=== PATIENT | male | born 1960 | race Caucasian/White ===

== ENCOUNTER → 2024-01-08 12:40 | Outpatient (REF) | payer BC, SELFPAY | LOC: RAD 12:40 | PROVIDERS: ATTENDING PHYSICIAN Family Medicine | DX: I77.811 Abdominal aortic ectasia (principal) | CPT/HCPCS: 76770 ==

== ENCOUNTER → 2024-06-03 08:32 | Outpatient (REF) | payer BC, SELFPAY ==
[2024-06-03 09:26] LABS: % Basophils 0.6 % (0-2); % Eosinophils 4.1 % (0-6); % Immature Granulocytes 0.3 % (0-0.5); % Lymphocytes 21.3 % (20.5-51.1); % Monocytes 9.8 % (1.7-9.3); % Neutrophils 63.9 % (42.2-75.2); Absolute Eosinophils 0.3 10^3/uL (0-0.7); Absolute Lymphocytes 1.4 10^3/uL (1.2-3.4); Absolute Monocytes 0.6 10^3/uL (0.1-0.6); Absolute Neutrophils 4.2 10^3/uL (1.4-6.5); Hematocrit 38.5 % (39.0-52.0); Hemoglobin 13.4 g/dL (13.0-18.0); Mean Corp Hgb Conc. 34.8 g/dL (33.0-37.0); Mean Corpuscular Hgb 33.7 pg (27.0-31.0); Mean Corpuscular Volume 96.7 fL (80.0-94.0); Mean Platelet Volume 9.6 fL (7.4-10.4); Nucleated Red Blood Cells % 0 % (-); Platelet Count 220 10^3/uL (130-400); Red Blood Cell Count 3.98 10^6/uL (4.70-6.10); Red Cell Dist. Width 12.4 % (11.5-14.5); White Blood Cell Count 6.5 10^3/uL (4.8-10.8)
[2024-06-03 10:19] LABS: Glycohemoglobin (HgbA1c) 5.2 % (4.0-5.6)
[2024-06-03 10:59] LABS: Microalbumin, Random Urine 1.3 mg/dl (0.6-1.7)
[2024-06-03 11:05] LABS: Microalbumin/creatinine Ratio 14.4 mg/g
[2024-06-03 11:14] LABS: ALT (SGPT) 22 U/L (0-50); AST (SGOT) 33 U/L (17-59); Albumin 4.3 g/dl (3.5-5.0); Alkaline Phosphatase 84 U/L (38-126); Blood Urea Nitrogen 18 mg/dl (9-20); Carbon Dioxide 33 mmol/L (22-30); Chloride 100 mmol/L (98-107); Glucose 87 mg/dl (70-99); HDL Cholesterol 45 mg/dl; LDL Cholesterol, Calculated 130 mg/dl; Potassium 4.3 mmol/L (3.5-5.1); Sodium 138 mmol/L (135-145); Total Bilirubin 0.9 mg/dl (0.2-1.3); Total Cholesterol 228 mg/dl (50-199); Total Protein 6.8 g/dl (6.3-8.2); Triglyceride 266 mg/dl (10-149); Uric Acid 6.1 mg/dl (3.5-8.5); Very Low Density Lipoprotein 53 mg/dl (0-30); eGFR > 60.00
[2024-06-03 11:38] LABS: PSA, Total - Screen 1.56 ng/ml (0.0-4.0)
== END ==
LOC: HWLAB 08:32
PROVIDERS: ATTENDING PHYSICIAN Family Medicine
DX: Z12.5 Encounter for screening for malignant neoplasm of prostate (principal); M10.9 Gout, unspecified; E11.9 Type 2 diabetes mellitus without complications; E78.5 Hyperlipidemia, unspecified; I10 Essential (primary) hypertension; E66.01 Morbid (severe) obesity due to excess calories; Z00.00 Encounter for general adult medical examination without abnormal findings
CPT/HCPCS: 36415; 80053; 80061; 82043; 82570; 83036; 84550; 85025; G0103

== ENCOUNTER 2025-03-24 05:39 | Emergency (ER) | payer BC, SELFPAY ==
[2025-03-24 05:44] VITALS: BP 143/82
[2025-03-24 06:08] VITALS: BMI 38.6
--- NOTE | 2025-03-24 06:15 | ED.GENMED ---
History of Present Illness
General
Chief Complaint: Flank Pain
Source: patient
Exam Limitations: none
Time Seen by Provider: 03/24/25 05:59
History of Present Illness
History of Present Illness:
64yoM with a history of atrial fibrillation no longer on anticoagulation, Parkinson's disease, hypertension, and CATRACHITO presenting for evaluation of left flank pain. Patient started to experience mild pain in his L flank yesterday evening before he
went to bed. He woke up around 3:30 AM this morning with worsening pain. Pain is localized to left flank and is nonradiating. He has a remote history of a kidney stone about 10 years ago and this feels similar. He was started on amantadine about
2 months ago and was increasing his dose up until 3 weeks ago. About 3 weeks ago, he had an episode of dysuria. He states his urine stream has not been the same since starting this medication. He is experiencing nocturia as well as urinary
urgency. He denies any fevers, chills, nausea, vomiting, abdominal pain, testicular pain.
Past History
Past History
ED Past Medical History: Arrthythmia (Atrial fibrillation), Asthma, HTN, Other (Gout) and Other (Kidney stone)
ED Past Surgical History: Appendectomy and Orthopedic (Cervical spinal fusion, right ankle fracture repair)
Social History
Tobacco: Former smoker
Alcohol: Occasional
Drug: None
Personal:
Living: with family
Employment: Employed (Teacher)
Family History
Family History: Hypertension; Negative Early CAD
Phy Exam
General Physical Exam
General Presentation: well appearing and no apparent distress
General Skin: warm and dry
General Habitus: normal
General Mental: alert
ENT Exam
ENT Exam: normocephalic
Pulmonary Exam
Pulmonary Exam: no respiratory distress
Gastrointestinal Exam
Gastrointestinal Exam: non tender, soft, non distended and no cva tenderness
Neurological Exam
Neurological Exam: alert
[place] Coma Scale
Eye Opening: Spontaneous
Verbal Response: Oriented
Motor Response: Obeys Commands
GCS Total Score: 15
Skin Exam
Skin Exam: normal color and warm/dry
Psychiatric Exam
Psychiatric Exam: normal mood/affect
Course
Orders/Labs/Results
Orders:
Orders
03/24/25 06:15
CT Abd/pel Without Iv Or Oral Urgent
Comment:
Reason For Exam: L flank pain
0.9% Sodium Chloride 1000 ml [Nss] 1,000 ml IV BOLUS
03/24/25 06:22
Complete Blood Count/With Diff Urgent
Urinalysis Reflex To Culture Urgent
Date Specimen was Collected: 03/24/25
Time Specimen was Collected: 06:19
03/24/25 06:35
Ketorolac [Toradol] 15 mg IV NOW STA
03/24/25 07:05
Comprehensive Metabolic Panel Urgent
Comment: REDRAW
Abnormal Lab Results
03/24/25 03/24/25
06:22 07:05
RBC 4.13 L 10^6/uL
(4.70-6.10)
MCV 97.6 H fL
(80.0-94.0)
MCH 33.2 H pg
(27.0-31.0)
Abs Immat Gran (auto) 0.1 H 10^3/uL
(0-0.05)
Absolute Monos (auto) 1.0 H 10^3/uL
(0.1-0.6)
Immature Gran % 1.2 H %
(0-0.5)
Lymphocytes % 19.6 L %
(20.5-51.1)
Monocytes % 11.3 H %
(1.7-9.3)
BUN 28 H mg/dl
(9-20)
03/24/25 06:22
03/24/25 07:05
Vital Signs
Initial and Last Documented VS:
Initial Vital Signs
Temp Pulse Resp BP Pulse Ox
98.2 F 77 20 143/82 96
03/24/25 05:44 03/24/25 05:44 03/24/25 05:44 03/24/25 05:44 03/24/25 05:44
Last Documented Vital Signs
Temp Pulse Resp BP Pulse Ox
98.2 F 77 20 143/82 96
03/24/25 05:44 03/24/25 05:44 03/24/25 06:43 03/24/25 05:44 03/24/25 05:44
MDM/Problems Addressed
Differential Diagnosis Includes:
64yoM here with L flank pain. Started last night and woke up him from sleep at 0330. Hx of kidney stones and this feels the same. Also c/o urinary urgency/nocturia for several weeks since starting a new medication. VSS. He is well-appearing in no
distress. No abdominal or CVA tenderness on exam. Differential diagnosis includes but is not limited to: Kidney stone, UTI, pyelonephritis, musculoskeletal, doubt but consider AAA
Initial ED plan: Check CBC, CMP, UA, and CT abdomen without contrast. IV fluid bolus. He declines analgesics.
*Critical Care Note
Total Time (30-74mins, 75-104mins- exclusive of procedures): Not Applicable
Update Note
Update Note:
Labs overall unremarkable including normal white count and creatinine. UA bland without signs of infection or microscopic hematuria. CT is negative for acute findings. Specifically, there is no hydronephrosis or evidence of ureterolithiasis.
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 Patient notified of this and was provided with a copy of his CT scan report. Patient does report a known history of an aneurysm and follows with vascular surgery for serial
ultrasounds. Pain has resolved on reassessment after receiving Toradol. He admits that pain is not as severe as his prior kidney stone but he wanted to 'get on top of it.' No indication for hospitalization. Unclear etiology of pain, possibly
musculoskeletal. Advised close follow-up with PCP and ED return precautions reviewed. Patient in agreement with plan and was discharged in stable condition.
ED Attending Note
-
Portions of this chart may have been created with voice recognition software.� Occasional wrong word or��sound alike� substitutions may have occurred due to the inherent limitations of voice recognition software.
Discharge Plan
Departure
Patient Disposition: Home (Routine Discharge)
Date of Disposition: 03/24/25
Time of Disposition: 07:57
Patient with high blood pressure during this ER visit?: Yes
Discharge Problem:
Left flank pain
Instructions: Flank Pain (DC)
Prescriptions:
No Action
omeprazole 40 MG capsule,delayed release(DR/EC)
40 mg PO
Indocin:
PO BID
Patient Comments:
pt unsure of indocin dose.
amiodarone [Pacerone] 200 MG tablet
200 mg PO BID Qty: 60 0RF
Rx Instructions:
Amiodarone 200 mg twice daily for 1 month then reduce to 200 mg once daily thereafter
amiodarone [Pacerone] 200 MG tablet
200 mg PO DAILY Qty: 30 11RF
Rx Instructions:
Amiodarone 200 mg twice daily for 1 month then reduce to 200 mg once daily thereafter
metoprolol succinate 100 MG tablet extended release 24 hr
100 mg PO DAILY Qty: 30 11RF
Rx Instructions:
You can take 2 tablets of Toprol XL 50 mg to equal the new dose of 100 mg daily
warfarin [Coumadin] 5 MG tablet
5 mg PO DAILY Qty: 45 0RF
Rx Instructions:
Take coumadin 5 mg daily or as directed to keep INR at goal of 2-3
colchicine 0.6 MG capsule
0.6 mg PO BID Qty: 20 0RF
oxycodone-acetaminophen 5 MG/325 MG tablet
1 tab PO Q4HPRN PRN (Reason: pain) Qty: 7 0RF
tamsulosin 0.4 MG capsule
0.4 mg PO DAILY Qty: 5 0RF
prednisone 10 MG tablet
10 mg PO .TAPER Qty: 30 0RF
Rx Instructions:
Take 40mg daily x3days, 30mg daily x3days,
20mg daily x3days, 10mg daily x3days.
Referrals:
UNKNOWN - PT DOES,NOT KNOW [Family Provider]
Activity Restrictions/Additional Instructions:
Take Tylenol and ibuprofen as needed for pain.
Please follow-up with your family doctor in 3-4 days. Return to the ER with any new or worsening symptoms including severe pain, fevers, chest pain, shortness of breath.
Interventions
Interventions:
*Risk Screen - Suicide Last Done: 03/24/25 05:44
*General Assessment Last Done: 03/24/25 06:08
*Neglect/Abuse Screening Last Done: 03/24/25 06:08
*ED- Fall Risk Assessment Last Done: 03/24/25 06:08
*ED COVID-19 Vaccine History Last Done: 03/24/25 06:44
SO-Ylwqcv-Urrnugbzfy Assessment Last Done: 03/24/25 06:26
ED-Male Genitourinary Assessment Last Done: 03/24/25 06:26
Discharge Date and Time
Print Language: BAHAMIAN
[2025-03-24] MEDS: NSS 1000 IV (06:21)
[2025-03-24 06:34] LABS: % Basophils 0.7 % (0-2); % Immature Granulocytes 1.2 % (0-0.5); % Lymphocytes 19.6 % (20.5-51.1); % Monocytes 11.3 % (1.7-9.3); % Neutrophils 65.2 % (42.2-75.2); Absolute Basophils 0.1 10^3/uL (0-0.2); Absolute Eosinophils 0.2 10^3/uL (0-0.7); Absolute Immature Granulocytes 0.1 10^3/uL (0-0.05); Absolute Lymphocytes 1.8 10^3/uL (1.2-3.4); Hematocrit 40.3 % (39.0-52.0); Hemoglobin 13.7 g/dL (13.0-18.0); Mean Corpuscular Hgb 33.2 pg (27.0-31.0); Mean Corpuscular Volume 97.6 fL (80.0-94.0); Mean Platelet Volume 9.6 fL (7.4-10.4); Nucleated Red Blood Cells % 0 % (-); Platelet Count 232 10^3/uL (130-400); Red Blood Cell Count 4.13 10^6/uL (4.70-6.10); Red Cell Dist. Width 12.8 % (11.5-14.5); White Blood Cell Count 9.2 10^3/uL (4.8-10.8)
[2025-03-24] MEDS: TORADOL 15 MG IV (06:38)
[2025-03-24 06:51] LABS: Urine Albumin Negative (Neg - Trace); Urine Bilirubin Negative (Negative); Urine Character Clear (Clear); Urine Color Amber; Urine Glucose Negative (Negative); Urine Ketone Negative (Negative); Urine Leukocyte Negative (Negative); Urine Nitrite Negative (Negative); Urine Occult Blood Negative (Negative); Urine Specific Gravity 1.015 (<1.030); Urine Urobilinogen Negative (Neg - 1+)
[2025-03-24 07:36] LABS: ALT (SGPT) < 10 U/L (0-50); AST (SGOT) 20 U/L (17-59); Albumin 3.8 g/dl (3.5-5.0); Alkaline Phosphatase 56 U/L (38-126); Blood Urea Nitrogen 28 mg/dl (9-20); Calcium 9.2 mg/dl (8.4-10.2); Carbon Dioxide 27 mmol/L (22-30); Chloride 107 mmol/L (98-107); Estimated Creatinine Clearance 118 ml/min; Glucose 99 mg/dl (70-99); Potassium 4.2 mmol/L (3.5-5.1); Sodium 138 mmol/L (135-145); Total Bilirubin 0.9 mg/dl (0.2-1.3); Total Protein 6.3 g/dl (6.3-8.2); eGFR > 60.00
[2025-03-24 08:52] VITALS: BP 114/68
== END 2025-03-24 08:53 | disposition home or self-care (01) ==
LOC: EMR 05:39
PROVIDERS: Physician Assistant; EMERGENCY PHYSICIAN Emergency Medicine
DX: R10.9 Unspecified abdominal pain (principal); R35.1 Nocturia; R39.15 Urgency of urination; I48.91 Unspecified atrial fibrillation; G20.A1 Parkinson's disease without dyskinesia, without mention of fluctuations; I10 Essential (primary) hypertension; I72.3 Aneurysm of iliac artery; G47.33 Obstructive sleep apnea (adult) (pediatric); J45.909 Unspecified asthma, uncomplicated; M10.9 Gout, unspecified; M43.22 Fusion of spine, cervical region; Z87.442 Personal history of urinary calculi; Z87.891 Personal history of nicotine dependence; Z91.013 Allergy to seafood; Z91.048 Other nonmedicinal substance allergy status
CPT/HCPCS: 99284; 96374; 74176; 80053; 81003; 85025

== ENCOUNTER → 2025-08-09 07:32 | Outpatient (REF) | payer MEDICARE, OTHER, SELFPAY ==
[2025-08-09 09:08] LABS: HDL Cholesterol 47 mg/dl; LDL Cholesterol, Calculated 105 mg/dl; Very Low Density Lipoprotein 39 mg/dl (0-30)
[2025-08-09 09:27] LABS: PSA, Total - Screen 1.16 ng/ml (0.0-4.0)
== END ==
LOC: RAD 07:32
PROVIDERS: ATTENDING PHYSICIAN Family Medicine
DX: I72.3 Aneurysm of iliac artery (principal); E78.5 Hyperlipidemia, unspecified; Z12.5 Encounter for screening for malignant neoplasm of prostate
CPT/HCPCS: 36415; 80061; 93978; G0103